=== PATIENT | female | born 1995 | race Caucasian/White ===

== ENCOUNTER 2016-07-05 08:05 | Inpatient (IN) | payer BC, OTHER ==
[2016-07-05] MEDS ORDERED: CARBOPROST TROMETHAMINE 250 MCG/ML 1 ML AMP IM PRN (08:17)
[2016-07-05] MEDS ORDERED: TERBUTALINE 1 MG/ML VIAL SQ PRN (08:17)
[2016-07-05] MEDS ORDERED: OXYTOCIN 10 UNIT/ML 1 ML VIAL IM PRN (08:17)
[2016-07-05] MEDS ORDERED: LIDOCAINE 1% (PF) 10 MG/ML (30 ML SDV) SQ PRN (08:17)
[2016-07-05] MEDS ORDERED: METHYLERGONOVINE 0.2 MG/ML 1 ML AMP IM PRN (08:17)
[2016-07-05] MEDS ORDERED: OXYTOCIN 30 UNITS/500 ML NS 30 UNIT in SALINE 1 500ML.BAG IV SCH (09:00)
[2016-07-05] MEDS: LACTATED RINGERS 1,000 ML IV SCH ×2 (09:00→12:35)
[2016-07-05 09:17] LABS: Basophils % (A) 0 %; CH 33.3; CHCM 34.5; Eosinophils % (A) 0 %; HCT 39.3 % (34.0-46.0); HDW 2.77; HGB 13.2 gm/dL (11.4-16.0); Luc # (Auto) 0.27; Luc % (Auto) 3; Lymphocytes % (A) 11 %; MCH 32.7 pg (25.0-35.0); MCHC 33.6 g/dL (31.0-37.0); MCV 97.2 fL (80.0-100.0); Mean Platelet Volume 9.1; Monocytes # (A) 0.4 k/uL (0-1.0); Monocytes % (A) 4 %; Neutrophils # (A) 7.7 k/uL (1.3-7.7); Neutrophils % (A) 82 %; RBC 4.05 m/uL (3.80-5.40); RDW 12.6 % (11.5-15.5); WBC 9.5 k/uL (3.8-10.6); WBC (Perox) 9.82
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
[2016-07-05] MEDS ORDERED: BUPIVACAINE (PF) 0.25% 30 ML VIAL ONE (12:14)
[2016-07-05] MEDS ORDERED: fentaNYL (PF) 50 MCG/ML 5 ML AMP ONE (12:14)
[2016-07-05] MEDS ORDERED: SODIUM CHLORIDE 0.9% 100 ML BAG ONE (12:14)
[2016-07-05] MEDS ORDERED: BUPIVACAINE (PF) 0.25% 25 ML, fentaNYL (PF) 200 MCG in SODIUM CHLORIDE 0.9% 71 ML EPIDURAL ONE (12:29)
[2016-07-05] MEDS ORDERED: SIMETHICONE 80 MG CHEWABLE PO PRN (15:10)
[2016-07-05] MEDS ORDERED: LANOLIN CREAM 5 GM TUBE TOPICAL PRN (15:10)
[2016-07-05] MEDS ORDERED: MEASLES-MUMPS-RUBELLA VACC/PF 12,500 UNIT/0.5 ML VIAL SQ ONE (15:10)
[2016-07-05] MEDS ORDERED: ACETAMINOPHEN TAB 325 MG TAB PO PRN (15:10)
[2016-07-05] MEDS ORDERED: HYDROCORTISONE 2.5% RECTAL CREAM 30 GM TUBE RECTAL PRN (15:10)
[2016-07-05] MEDS ORDERED: diphenhydrAMINE ELIXIR 25 MG/10 ML CUP PO PRN (15:10)
[2016-07-05] MEDS ORDERED: Acetaminophen-Codeine 300-30mg TAB PO PRN (15:10)
[2016-07-05] MEDS ORDERED: diphenhydrAMINE 25 MG CAP PO PRN (15:10)
[2016-07-05] MEDS ORDERED: diphenhydrAMINE 50 MG CAP PO PRN (15:10)
[2016-07-05] MEDS ORDERED: ZOLPIDEM 5 MG TAB PO PRN (15:10)
[2016-07-05] MEDS ORDERED: BENZOCAINE/MENTHOL SPRAY 1 GM/SPRAY AEROSOL TOPICAL PRN (15:10)
[2016-07-05] MEDS ORDERED: diphenhydrAMINE 50 MG/ML 1 ML VIAL IVP PRN ×2 (15:10)
[2016-07-05] MEDS ORDERED: IBUPROFEN 600 MG TAB PO PRN (15:10)
[2016-07-05] MEDS ORDERED: WITCH HAZEL 1 EACH MED..PAD TOPICAL PRN (15:10)
--- NOTE | 2016-07-05 15:10 | P.PROBDLV ---
Vaginal Delivery Note - . Vaginal Delivery Note: This is a 20-year-old white female 1 para 0 EDC 07/19/2016 at 38 weeks gestation. Patient presented with strong regular uterine contractions, cervix of 5 cm. Decision was made to admit patient. was unremarkable, there is a history of circumvallate placenta with frequent ultrasounds and weekly nonstress tests, all reactive. In addition she had chlamydia diagnosed earlier in the , was treated with antibiotics, repeat cultures last week negative. Please see my dictated history and physical for details. On admitted as stated patient was 5 cm dilated. Artificial amniorrhexis revealed thin meconium-stained fluid. Oxytocin was started and titrated per hospital protocol. She requested epidural and this was placed without difficulty per the anesthesia staff. She progressed well through the first stage of labor was judged to be completely dilated at 1417 hours. She began the second stage of labor at that time. heart tones remained reassuring. She pushed successfully and ultimately the perineal body was prepped and draped in usual sterile fashion. Infant's head delivered occiput anterior and she restituted accordingly. There was no nuchal cord noted. The right or anterior shoulder was gently and easily delivered from underneath the pubic symphysis at which time the oropharynx, nasopharynx, and external nares were all thoroughly bulb suctioned. Patient was officially delivered of a liveborn female at 1448 hours. Umbilical cord was doubly clamped and ligated, she was handed to waiting nurses for evaluation where scores of 9 and 9 at one and 5 minutes respectively were given. The placenta delivered spontaneously, it was inspected and noted to be intact with trivascular cord and a thickened calcified rim around the edge, at 1451. It was sent to pathology for further evaluation. Uterus was massaged. Inspection of the cervix, vagina, perineum, periurethral, and perirectal areas revealed a small midline second-degree perineal laceration. This was repaired in usual fashion using 3-0 Vicryl suture for excellent reapproximation. Rectal exam revealed intact sphincter with good tone. All sponge needle and enhancement counts are correct at the end of this procedure. weighed 3200 g, or 7 lbs. 1 oz. The patient and her family are allowed to begin the bonding experience in the LDR, total estimated blood loss 250 mL's. Complications: None.
[2016-07-05] MEDS: ACET/COD 240MG/24MG LIQ 10 ML SYRG PO PRN (16:17)
[2016-07-05] MEDS: OXYTOCIN 30 UNITS/500 ML NS 30 UNIT in SALINE 1 500ML.BAG IV SCH ×2 (18:08→20:09)
[2016-07-05] MEDS: IBUPROFEN ORAL SUSP 100 MG/5 ML CUP PO PRN (19:47)
[2016-07-05] MEDS ORDERED: SENNOSIDES-DOCUSATE SODIUM 1 EACH TAB PO SCH (20:00)
[2016-07-05 20:06] VITALS: RESP 16
[2016-07-05] MEDS: SENNA LEAF EXTRACT SYRUP 528 MG/15 ML CUP PO SCH (20:18)
[2016-07-06] MEDS: ACET/COD 240MG/24MG LIQ 10 ML SYRG PO PRN ×3 (00:15→15:09)
[2016-07-06] MEDS: IBUPROFEN ORAL SUSP 100 MG/5 ML CUP PO PRN (07:39)
[2016-07-06 08:27] VITALS: BP 94/66; PULSE 83; TEMP 97.6
--- NOTE | 2016-07-06 09:15 | P.DS ---
Providers Date of admission: 07/05/16 08:21 Expected date of discharge: 07/06/16 [facility] Course: This is a 20-year-old white female 1 para 0 EDC 07/19/2016 at 38 weeks gestation. Patient presented to labor and delivery with strong regular uterine contractions. She was admitted, artificial amniorrhexis revealed light meconium -stained fluid. Her was remarkable for positive Chlamydia cultures earlier in the , treated with antibiotics with 3 cultures negative. In addition she has a circumvallate placenta and has been followed with regular sonograms for growth, as well as weekly nonstress testing after 32 weeks, all have been reactive. Please see my dictated history and physical for details. Oxytocin augmentation was started and titrated per hospital protocol. She requested an epidural without issue. She went on to deliver a liveborn female with scores of 9 and 9 at one and 5 minutes respectively. Estimated blood loss was recorded at 250 mL's. Was a small second-degree perineal laceration easily repaired. Baby weighed 3200 g or 7 lbs. 1 oz. Please see my dictated delivery note for details. This morning the patient and her baby are both doing well. Patient is voiding, ambulating, passing flatus without issues. Breasts are not engorged. Perineal body is slightly edematous, no obvious hematoma, stitches nicely intact. Pain is controlled by Motrin products. Fundus is firm and in the midline, symmetric and 18 week size. is doing well. nutrition services worker consult has been requested, however has not yet been performed. I am hoping for forensic social worker consult sometime today, but we will discharge the patient home after dinner. She is to follow-up in the office with me in 6 weeks. I have reminded her no intercourse, tampons or douching. She is not in an intimate relationship at this time. I reminded her to continue taking her vitamin daily, and to use [id number] Aleve or Advil or Motrin as needed for pain. She will call with any fevers shakes or chills, foul smelling or copious lochia, with the passage of large blood clots, or indeed with any concerns. Patient Condition at Discharge: Good Plan - Discharge Summary Discharge Medication List Pnv with Ca,No.72/Iron/FA [ Plus Tablet] 1 tab PO DAILY 11/29/15 [ History] Follow up Appointment(s)/Referral(s): Mirian Oro MD [STAFF PHYSICIAN] - 6 Weeks Discharge Disposition: HOME SELF-CARE
[2016-07-06] MEDS: SENNA LEAF EXTRACT SYRUP 528 MG/15 ML CUP PO SCH (11:06)
== END 2016-07-06 15:45 | disposition home or self-care (01) | DRG 774 ==
LOC: FBPOP 08:05 → 4FBP 08:21
PROVIDERS: ADMIT Obstetrics & Gynecology; ATTEND Obstetrics & Gynecology
PROC: 10E0XZZ Delivery of Products of Conception, External Approach (ICD-10-PCS; principal; 2016-07-05)
PROC: 0KQM0ZZ Repair Perineum Muscle, Open Approach (ICD-10-PCS; 2016-07-05)
PROC: 00HU33Z Insertion of Infusion Device into Spinal Canal, Percutaneous Approach (ICD-10-PCS; 2016-07-05)
PROC: 3E0R3CZ (ICD-10-PCS; 2016-07-05)
PROC: 3E0134Z Introduction of Serum, Toxoid and Vaccine into Subcutaneous Tissue, Percutaneous Approach (ICD-10-PCS; 2016-07-05)
DX: O77.0 Labor and delivery complicated by meconium in amniotic fluid (principal); O98.311 Other infections with a predominantly sexual mode of transmission complicating pregnancy, first trimester; O43.112 Circumvallate placenta, second trimester; O70.1 Second degree perineal laceration during delivery; Z37.0 Single live birth; Z3A.38 38 weeks gestation of pregnancy; Z62.810 Personal history of physical and sexual abuse in childhood; Z23 Encounter for immunization; A56.8 Sexually transmitted chlamydial infection of other sites
CPT/HCPCS: 85025; 88307; 90707; 99213

== ENCOUNTER 2018-01-01 23:40 | Emergency (ER) | payer BC, OTHER ==
[2018-01-02] MEDS ORDERED: SODIUM CHLORIDE 0.9% 1,000 ML IV ONE
[2018-01-02 00:46] LABS: Basophils % (A) 1 %; Eosinophils # (A) 0.1 k/uL (0-0.7); Eosinophils % (A) 2 %; HCT 42.9 % (34.0-46.0); HGB 14.1 gm/dL (11.4-16.0); Lymphocytes % (A) 31 %; MCH 31.7 pg (25.0-35.0); MCHC 32.8 g/dL (31.0-37.0); MCV 96.5 fL (80.0-100.0); Mean Platelet Volume 7.4; Monocytes # (A) 0.3 k/uL (0-1.0); Monocytes % (A) 5 %; Neutrophils # (A) 3.8 k/uL (1.3-7.7); Neutrophils % (A) 59 %; Platelet Count 247 k/uL (150-450); RBC 4.44 m/uL (3.80-5.40); RDW 11.9 % (11.5-15.5); WBC 6.4 k/uL (3.8-10.6)
[2018-01-02 01:17] LABS: Anion Gap 7 mmol/L; Blood Urea Nitrogen 14 mg/dL (7-17); Calcium 9.7 mg/dL (8.4-10.2); Carbon Dioxide 30 mmol/L (22-30); Chloride 100 mmol/L (98-107); Glucose 90 mg/dL (74-99); Magnesium 2.1 mg/dL (1.6-2.3); Potassium 4.4 mmol/L (3.5-5.1); Sodium 137 mmol/L (137-145)
--- NOTE | 2018-01-02 01:42 | ED ---
Lower Extremity Injury HPI - General Chief Complaint: Extremity Injury, Lower Stated Complaint: foot pain Time Seen by Provider: 01/01/18 23:53 Source: patient Mode of arrival: ambulatory Limitations: no limitations - History of Present Illness Initial Comments: This is 22-year-old woman who presents for couple of days of bilateral foot spasms. Patient states that she would get spasms lasting a few minutes at a time. They are severe intensity. She has not discovered any relieving factors. It is sometimes worse if she flexes her foot. MD Complaint: foot injury -: days(s) Place: home Improves With: nothing Worsens With: nothing - Related Data Home Medications Medication Instructions Recorded Confirmed Pnv,Calcium 72/Iron/Folic Acid 1 tab PO DAILY 11/29/15 07/05/16 [ Plus Tablet] Previous Rx's Medication Instructions Recorded Cyclobenzaprine [Flexeril] 5 mg PO TID PRN #12 tablet 01/02/18 Allergies Allergy/AdvReac Type Severity Reaction Status Date / Time No Known Allergies Allergy Verified 01/01/18 23:47 Review of Systems ROS Statement: Those systems with pertinent positive or pertinent negative responses have been documented in the HPI. ROS Other: All systems not noted in ROS Statement are negative. Constitutional: Denies: fever, chills Respiratory: Denies: dyspnea Cardiovascular: Denies: chest pain, palpitations, edema Gastrointestinal: Denies: vomiting, diarrhea Musculoskeletal: Reports: as per HPI Skin: Denies: rash Neurological: Denies: weakness, numbness, paresthesias Past Medical History Additional Past Medical History / Comment(s): prolapsed bowel History of Any Multi-Drug Resistant Organisms: None Reported Past Surgical History: Appendectomy Past Psychological History: No Psychological Hx Reported Smoking Status: Never smoker Past Alcohol Use History: None Reported Past Drug Use History: None Reported General Exam Limitations: no limitations General appearance: alert, in no apparent distress Head exam: Present: atraumatic, normocephalic Respiratory exam: Present: normal lung sounds bilaterally. Absent: respiratory distress, wheezes, rales, rhonchi, stridor Cardiovascular Exam: Present: regular rate, normal rhythm, normal heart sounds. Absent: systolic murmur, diastolic murmur, rubs, gallop GI/Abdominal exam: Present: soft. Absent: distended, tenderness, guarding, rebound Extremities exam: Present: normal inspection, full ROM, normal capillary refill. Absent: tenderness, pedal edema, calf tenderness Back exam: Present: normal inspection Neurological exam: Absent: motor sensory deficit Skin exam: Present: warm, dry, intact, normal color. Absent: rash Course Vital Signs 01/01/18 01/02/18 23:44 02:32 Temperature 98.0 F 97.8 F Pulse Rate 64 85 Respiratory 14 18 Rate Blood Pressure 109/73 90/54 O2 Sat by Pulse 100 100 Oximetry Medical Decision Making - Lab Data Result diagrams: 01/02/18 00:15 01/02/18 00:15 Lab Results 01/02/18 01/02/18 01/02/18 Range/Units 00:15 00:15 00:15 WBC 6.4 (3.8-10.6) k/uL RBC 4.44 (3.80-5.40) m/uL Hgb 14.1 (11.4-16.0) gm/dL Hct 42.9 (34.0-46.0) % MCV 96.5 (80.0-100.0) fL MCH 31.7 (25.0-35.0) pg MCHC 32.8 (31.0-37.0) g/dL RDW 11.9 (11.5-15.5) % Plt Count 247 (150-450) k/uL Neutrophils % 59 % Lymphocytes % 31 % Monocytes % 5 % Eosinophils % 2 % Basophils % 1 % Neutrophils # 3.8 (1.3-7.7) k/uL Lymphocytes # 2.0 (1.0-4.8) k/uL Monocytes # 0.3 (0-1.0) k/uL Eosinophils # 0.1 (0-0.7) k/uL Basophils # 0.0 (0-0.2) k/uL Sodium 137 (137-145) mmol/L Potassium 4.4 (3.5-5.1) mmol/L Chloride 100 (98-107) mmol/L Carbon Dioxide 30 (22-30) mmol/L Anion Gap 7 mmol/L BUN 14 (7-17) mg/dL Creatinine 0.61 (0.52-1.04) mg/dL Est GFR (CKD-EPI)AfAm >90 (>60 ml/min/1.73 sqM) Est GFR (CKD-EPI)NonAf >90 (>60 ml/min/1.73 sqM) Glucose 90 (74-99) mg/dL Calcium 9.7 (8.4-10.2) mg/dL Magnesium 2.1 (1.6-2.3) mg/dL Urine HCG, Qual Not Detected (Not Detectd) Disposition Clinical Impression: Muscle spasm Disposition: HOME SELF-CARE Condition: Good Instructions: Muscle Spasm (ED) Prescriptions: Cyclobenzaprine [Flexeril] 5 mg PO TID PRN #12 tablet PRN Reason: Spasms Is patient prescribed a controlled substance at d/c from ED?: No Referrals: Beatriz Philip III, MD [Primary Care Provider] - 1-2 days
[2018-01-02 02:33] VITALS: BP 90/54; PULSE 85; RESP 18; TEMP 97.8
== END 2018-01-02 02:33 | disposition home or self-care (01) ==
LOC: EC 23:40
DX: M62.838 Other muscle spasm (principal)
CPT/HCPCS: 36415; 80048; 81025; 83735; 85025; 96360; 96361; 99283